=== PATIENT | male | born 1955 ===

== ENCOUNTER 2024-01-02 21:07 | Emergency (ER) | payer OTHER, MEDICARE ==
[2024-01-02] MEDS ORDERED: TYLENOL 325 MG ONE (21:37)
[2024-01-02] MEDS ORDERED: Sodium Chloride 0.9% 1000 ML 1,000 ML ONE (21:37)
[2024-01-02] MEDS: TYLENOL 325 MG PO STA (21:41)
--- NOTE | 2024-01-02 21:41 | ERPHSYRPT ---
- History of Present Illness Time Seen by Provider: 01/02/24 21:25 Source: patient Exam Limitations: no limitations Patient Subjective Stated Complaint: fever, cough, headache, confusion that started around 1730 Triage Nursing Assessment: pt wheeled to room by nursing staff and transferred to bed with assist of 2, pt alert but confused, alert and oriented x2-not oriented to time, pt skin hot to touch and flushed, pt c/o fever, cough, headache that started around 1730, pt has temp of 103, per ex pt refused tylenol at home. pt lives with son Physician History: 68-year-old male presents to emergency department for evaluation of fever cough. reports confusion. Patient reported headache earlier in the day. Currently no headache no neck pain no photophobia. Patient's symptoms are constant. Symptoms are moderate in intensity. No specific worsening improving factors. No trauma. No chest pain or shortness of breath. 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 Patient voices no other complaints or concerns at this time. Portions of this note were created with voice recognition technology. There may be grammatical, spelling, punctuation or sound alike errors Timing/Duration: today Fever Severity: moderate Fever Therapy POULTRY PICKER: other (Patient declined antipyretics) Associated Symptoms: cough Allergies/Adverse Reactions: lisinopril Adverse Reaction (Severe, Verified 01/02/24 21:11) Swelling of Tongue and Lips Hx Tetanus, Diphtheria Vaccination/Date Given: Yes Hx Influenza Vaccination/Date Given: No Hx Pneumococcal Vaccination/Date Given: No Immunizations Up to Date: Yes Travel Risk - International Travel Have you traveled outside of the country in past 3 weeks: No - Coronavirus Screening Are you exhibiting any of the following symptoms?: Yes Symptoms: Fever, Cough: New Onset, Headaches/Body Aches/Fatigue Close contact with a COVID-19 positive Pt in past 14-21 Days: No - Vaccine Status Have you recieved a Covid-19 vaccination: Yes Respiratory Supervisor: Unknown - Vaccination Dates Dates if Unknown: unk - Review of Systems Constitutional: No Symptoms, No Fever, No Chills Eyes: No Symptoms Ears, Nose, & Throat: No Symptoms Respiratory: No Symptoms, No Cough, No Dyspnea Cardiac: No Symptoms, No Chest Pain, No Edema, No Syncope Abdominal/Gastrointestinal: No Symptoms, No Abdominal Pain, No Nausea, No Vomiting, No Diarrhea Genitourinary Symptoms: No Symptoms, No Dysuria Musculoskeletal: No Symptoms, No Back Pain, No Neck Pain Skin: No Symptoms, No Rash Neurological: No Symptoms, No Dizziness, No Focal Weakness, No Sensory Changes Psychological: No Symptoms Endocrine: No Symptoms Hematologic/Lymphatic: No Symptoms Immunological/Allergic: No Symptoms All Other Systems: Reviewed and Negative - Past Medical History Pertinent Past Medical History: Yes Neurological History: No Pertinent History ENT History: Cataracts Cardiac History: Aneurysm, High Cholesterol, Hypertension, Myocardial Infarction ([place]) Respiratory History: Pneumonia Endocrine Medical History: Diabetes Type II Musculoskeletal History: Arthritis GI Medical History: No Pertinent History History: No Pertinent History Psycho-Social History: No Pertinent History Male Reproductive Disorders: No Pertinent History - Past Surgical History Past Surgical History: Yes Neuro Surgical History: No Pertinent History Cardiac: CABG, Cardiac Stent Respiratory: No Pertinent History Gastrointestinal: No Pertinent History Genitourinary: No Pertinent History Musculoskeletal: No Pertinent History Male Surgical History: No Pertinent History - Social History Smoking Status: Former smoker Exposure to second hand smoke: No Drug Use: none Patient Lives Alone: No (son) - Nursing Vital Signs Nursing Vital Signs: Initial Vital Signs Temperature 103.2 F 01/02/24 21:14 Pulse Rate 86 01/02/24 21:14 Respiratory Rate 92 H 01/02/24 21:14 Blood Pressure 133/51 01/02/24 21:14 O2 Sat by Pulse Oximetry 93 L 01/02/24 21:14 Pain Scale Pain Intensity 0 - Physical Exam General Appearance: no apparent distress, alert Eye Exam: PERRL/EOMI ENT Exam: normal ENT inspection, No pharyngeal erythema, No tonsillar exudate Neck Exam: supple, full range of motion, No meningismus Respiratory Exam: normal breath sounds, lungs clear, no respiratory distress Cardiovascular/Chest Exam: normal heart sounds, regular rate/rhythm, No murmur, No edema Gastrointestinal/Abdominal Exam: soft, non tender, no distention Extremity Exam: non-tender, normal range of motion, normal inspection, normal capillary refill Neurologic Exam: alert, oriented x 3, cooperative, church worker II-XII nml as tested, normal mood/affect, sensation nml, No motor deficits Skin Exam: normal color, warm, dry, No rash Lymphatic: No adenopathy SpO2 Interpretation: normal SpO2: 94 O2 Delivery: Room Air - Course Nursing assessment & vital signs reviewed: Yes - Radiology Exams Chest X-ray Interpretation: Interpreted by me (Some basilar atelectasis. No consolidations) - CT Exams Head CT Interpretation: Tele-radiologist Report (CT head reveals a left mastoiditis otherwise no acute intracranial pathology.) Ordered Tests: Active Orders 24 hr Category Date Time Status AMA [Release AMA] OM.NOW Care 01/03/24 00:21 Completed Bark Fitter STAT Care 01/02/24 21:24 Completed IV Insertion STAT Care 01/02/24 21:23 Completed Pulse Oximetry (ED) STAT Care 01/02/24 21:23 Completed CHEST 1 VIEW (PORTABLE) Stat Exams 01/02/24 21:24 Completed HEAD WITHOUT CONTRAST [CT] Stat Exams 01/02/24 21:36 Completed BLOOD CULTURE Stat Lab 01/02/24 21:45 Received CBC W DIFF Stat Lab 01/02/24 21:30 Completed CMP Stat Lab 01/02/24 21:30 Completed Lactic Acid Stat Lab 01/02/24 21:23 Completed Lactic Acid Stat Lab 01/02/24 23:43 Completed UA W/RFX UR CULTURE Stat Lab 01/02/24 21:32 Completed Medication Summary Discontinued Medications Generic Name Dose Route Start Last Admin Trade Name Freq PRN Reason Stop Dose Admin Acetaminophen 975 mg 01/02/24 21:23 01/02/24 21:41 Acetaminophen 325 Mg Tablet PO 01/02/24 21:24 975 mg STAT STA Administration Acetaminophen Confirm 01/02/24 21:37 Acetaminophen 325 Mg Tablet Administered 01/02/24 21:38 Dose 975 mg .ROUTE .STK-MED ONE Sodium Chloride 1,000 mls @ 100 mls/hr 01/02/24 21:30 01/02/24 21:42 Sodium Chloride 0.9% 1000 Ml IV 02/01/24 21:29 100 mls/hr .Q10H ROBYN Administration Clindamycin HCl/Dextrose 600 mg in 50 mls @ 100 mls/hr 01/03/24 00:11 01/03/24 00:19 Clindamycin-D5w 600 Mg/50 Ml IV 01/03/24 00:40 Not Given STAT STA Clindamycin HCl/Dextrose Confirm 01/03/24 00:17 Clindamycin-D5w 600 Mg/50 Ml Administered 01/03/24 00:18 Dose 600 mg in 50 mls @ ud IV .STK-MED ONE Piperacillin Sod/Tazobactam 100 mls @ 200 mls/hr 01/03/24 00:19 01/03/24 00:21 Sod 3.375 gm/ Sodium Chloride IV 01/03/24 00:48 200 mls/hr STAT ONE Administration Sodium Chloride Confirm 01/03/24 00:20 Sodium Chloride 100ml Mini-Bag Plus Administered 01/03/24 00:21 Dose 100 mls @ ud IV .STK-MED ONE Sodium Chloride Confirm 01/02/24 21:37 Sodium Chloride 0.9% 1000 Ml Administered 01/02/24 21:38 Dose 1,000 mls @ ud .ROUTE .STK-MED ONE Piperacillin Sod/Tazobactam Sod Confirm 01/03/24 00:20 Piperacillin/Tazobactam Sodium 3.375 Gm Vial Administered 01/03/24 00:21 Dose 3.375 gm IV .STK-MED ONE Lab/Rad Data: Laboratory Result Diagrams 01/02/24 21:30 01/02/24 21:30 Laboratory Results 01/02/24 01/02/24 01/02/24 Range/Units 23:43 21:50 21:32 WBC (4.0-10.5) x10^3/uL RBC (4.1-5.6) x10^6/uL Hgb (12.5-18.0) g/dL Hct (42-50) % MCV (78-100) fL MCH (26-32) pg MCHC (32-36) g/dL RDW (11.5-14.0) % Plt Count (150-450) x10^3/uL MPV (7.5-11.0) fL Gran % (36.0-66.0) % Immature Gran % (Auto) (0.00-0.4) % Nucleat RBC Rel Count (0.00-0.1) % Eos # (Auto) (0-0.5) x10^3/uL Immature Gran # (Auto) (0.00-0.03) x10^3u/L Absolute Lymphs (auto) (1.0-4.6) x10^3/uL Absolute Monos (auto) (0.0-1.3) x10^3/uL Absolute Nucleated RBC (0.00-0.01) x10^3u/L Lymphocytes % (24.0-44.0) % Monocytes % (0.0-12.0) % Eosinophils % (0.00-5.0) % Basophils % (0.0-0.4) % Absolute Granulocytes (1.4-6.9) x10^3/uL Basophils # (0-0.4) x10^3/uL Sodium (135-145) mmol/L Potassium (3.5-5.1) mmol/L Chloride (98-107) mmol/L Carbon Dioxide (22-30) mmol/L Anion Gap (5-15) MEQ/L BUN (9-20) mg/dL Creatinine (0.66-1.25) mg/dL Estimated GFR ML/MIN Glucose (74-106) mg/dL Lactic Acid 1.0 (0.4-2.0) Calcium (8.4-10.2) mg/dL Total Bilirubin (0.2-1.3) mg/dL AST (17-59) U/L ALT (0-50) U/L Alkaline Phosphatase (38-126) U/L Serum Total Protein (6.3-8.2) g/dL Albumin (3.5-5.0) g/dL Urine Color Yellow (Yellow) Urine Appearance Clear (Clear) Urine pH 6.0 (4.6-8.0) Ur Specific [place] 1.025 (1.005-1.030) Urine Protein Negative (Negative) Urine Glucose (UA) >=1000 A (Negative) mg/dL Urine Ketones Negative (Negative) Urine Blood Negative (Negative) Urine Nitrite Negative (Negative) Urine Bilirubin Negative (Negative) Urine Urobilinogen 1.0 A (0.2) mg/dL Ur Leukocyte Esterase Negative (Negative) U Hyaline Cast (Auto) NONE SEEN (0-2) /LPF Urine Microscopic RBC 0-2 (0-5) /HPF Urine Microscopic WBC 0-2 (0-5) /HPF Ur Epithelial Cells None Seen (None Seen) /HPF Urine Bacteria None Seen (None Seen) /HPF Urine Culture Reflexed NO (NO) Influenza Type A Ag NEGATIVE (NEGATIVE) Influenza Type B Ag NEGATIVE (NEGATIVE) RSV (PCR) NEGATIVE (NEGATIVE) SARS-CoV-2 (PCR) POSITIVE A (NEGATIVE) 01/02/24 01/02/24 01/02/24 Range/Units 21:30 21:30 21:23 WBC 6.8 (4.0-10.5) x10^3/uL RBC 5.14 (4.1-5.6) x10^6/uL Hgb 14.4 (12.5-18.0) g/dL Hct 43.1 (42-50) % MCV 83.9 (78-100) fL MCH 28.0 (26-32) pg MCHC 33.4 (32-36) g/dL RDW 14.1 H (11.5-14.0) % Plt Count 158 (150-450) x10^3/uL MPV 10.4 (7.5-11.0) fL Gran % 80.4 H (36.0-66.0) % Immature Gran % (Auto) 0.6 H (0.00-0.4) % Nucleat RBC Rel Count 0.0 (0.00-0.1) % Eos # (Auto) 0.08 (0-0.5) x10^3/uL Immature Gran # (Auto) 0.04 H (0.00-0.03) x10^3u/L Absolute Lymphs (auto) 0.55 L (1.0-4.6) x10^3/uL Absolute Monos (auto) 0.63 (0.0-1.3) x10^3/uL Absolute Nucleated RBC 0.00 (0.00-0.01) x10^3u/L Lymphocytes % 8.1 L (24.0-44.0) % Monocytes % 9.3 (0.0-12.0) % Eosinophils % 1.2 (0.00-5.0) % Basophils % 0.4 (0.0-0.4) % Absolute Granulocytes 5.46 (1.4-6.9) x10^3/uL Basophils # 0.03 (0-0.4) x10^3/uL Sodium 138 (135-145) mmol/L Potassium 3.9 (3.5-5.1) mmol/L Chloride 103 (98-107) mmol/L Carbon Dioxide 23 (22-30) mmol/L Anion Gap 15.6 H (5-15) MEQ/L BUN 19 (9-20) mg/dL Creatinine 1.32 H (0.66-1.25) mg/dL Estimated GFR 58.8 ML/MIN Glucose 120 H (74-106) mg/dL Lactic Acid 2.0 (0.4-2.0) Calcium 9.2 (8.4-10.2) mg/dL Total Bilirubin 0.60 (0.2-1.3) mg/dL AST 46 (17-59) U/L ALT 32 (0-50) U/L Alkaline Phosphatase 57 (38-126) U/L Serum Total Protein 7.5 (6.3-8.2) g/dL Albumin 4.5 (3.5-5.0) g/dL Urine Color (Yellow) Urine Appearance (Clear) Urine pH (4.6-8.0) Ur Specific [place] (1.005-1.030) Urine Protein (Negative) Urine Glucose (UA) (Negative) mg/dL Urine Ketones (Negative) Urine Blood (Negative) Urine Nitrite (Negative) Urine Bilirubin (Negative) Urine Urobilinogen (0.2) mg/dL Ur Leukocyte Esterase (Negative) U Hyaline Cast (Auto) (0-2) /LPF Urine Microscopic RBC (0-5) /HPF Urine Microscopic WBC (0-5) /HPF Ur Epithelial Cells (None Seen) /HPF Urine Bacteria (None Seen) /HPF Urine Culture Reflexed (NO) Influenza Type A Ag (NEGATIVE) Influenza Type B Ag (NEGATIVE) RSV (PCR) (NEGATIVE) SARS-CoV-2 (PCR) (NEGATIVE) - Progress Progress: improved Progress Note: 68-year-old male presents to our ED for evaluation of fever confusion headache. Physical exam otherwise nonremarkable. Patient had no nuchal rigidity. No photosensitivity. No meningeal signs. CT head reveals left mastoiditis. Workup also reveals dehydration elevated creatinine. Elevated lactic acid. Dehydration. In light of patient's presenting symptoms I advised a lumbar puncture to assess for encephalitis meningitis. Patient declined. Patient at bedside states patient was no longer confused and he was reliable. Then I advised admission for treatment of dehydration antibiotics for the mastoiditis and observation given the patient refused the lumbar puncture. Patient declined admission as well. We then administered a dose of Zosyn in our ED. A prescription for Augmentin forwarded to patient's pharmacy. states she will make sure patient is monitored at home and they will return if symptoms continue or worsen. They agree to follow-up with a primary care doctor within 48 hours for evaluation. Patient is of sound mind. Patient is appropriate to make informed and independent medical decisions. Patient understands that leaving AGAINST MEDICAL ADVICE can result in delayed diagnosis, increased risk of morbidity, mortality, short and long-term disability including . In spite of these risks, patient has decided to leave AGAINST MEDICAL ADVICE. Patient understands that he may return to our ED at any point if he reconsiders. Patient agrees to follow-up with his primary care doctor within 48 hours for reevaluation. Patient voices no other complaints or concerns at this time. We will release patient AGAINST MEDICAL ADVICE per their request. Portions of this note were created with voice recognition technology. There may be grammatical, spelling, punctuation or sound alike errors Complexity problem addressed is moderate acute complicated No critical care time Complexity of data reviewed and analyzed is moderate. Test ordered test reviewed. Results analyzed and correlated clinically with history and physical examination. Risk of complication and or risk of morbidity/mortality of patient management is moderate. Prescription for Augmentin forwarded to patient's pharmacy. Vital stable. Temperature significantly improved. Plan of care established for shared decision making. No social determinants of health present impede follow-up. Ex- at bedside states she will continue to monitor patient at home 01/03/24 00:21 01/03/24 00:26 Patient's chest x-ray report shows mild cardiomegaly with pulmonary congestion. This is an unexpected finding. Report resulted after patient left AMA. RN advised to contact patient's primary provider Anamaria Kelly for follow-up. We will also contact patient to inform him of the finding and the importance of follow-up with his primary care physician. 01/03/24 06:27 Counseled pt/family regarding: lab results, diagnosis, need for follow-up, rad results - Departure Departure Disposition: AMA Clinical Impression: Fever, Confusion, Elevated lactic acid level, COVID, Dehydration, Glucosuria, Mastoiditis of left side, Pulmonary congestion, Cardiomegaly Condition: Stable Critical Care Time: No Referrals: ARISTEO GARCÍA [NON-STAFF PHY W/O PRIVILEGES] - Follow up/PCP as directed Instructions: Mastoiditis (DC), COVID-19 (DC) Additional Instructions: Discharge/Care Plan ALANNA ADAM was seen on 01/02/24 in the Emergency Room. The patient was counseled regarding Diagnosis,Lab results, Imaging studies, need for follow up and when to return to the Emergency Room. Prescriptions given: Discharge Note I have spoken with the patient and/or caregivers. I have explained the patient's condition, diagnosis and treatment plan based on the information available to me at this time. I have answered the patient's and/or caregiver's questions and addressed any concerns. The patient and/or caregivers have as good understanding of the patient's diagnosis, condition and treatment plan as can be expected at this point. The vital signs have been stable. The patient's condition is stable and appropriate for discharge from the emergency department. The patient will pursue further outpatient evaluation with the primary care physician or other designated or consulting physician as outlined in the discharge instructions. The patient and/or caregivers are agreeable to this plan of care and follow-up instructions have been explained in detail. The patient and/or caregivers have received these instruction. The patient/and or caregivers are aware that any significant change in condition or worsening of symptoms should prompt an immediate return to this or the closest emergency department or call 911. Prescriptions: Amox Tr/Potass Clav. 875 mg [Augmentin 875-125 Tablet] 875 mg PO BID 7 Days #14 tablet
[2024-01-02] MEDS: Sodium Chloride 0.9% 1000 ML 1,000 ML IV SCH (21:42)
[2024-01-02 21:53] LABS: Absolute Neutrophil Ct (ANC) 5.46 x10^3/uL (1.4-6.9); BASOPHIL % 0.4 % (0.0-0.4); Basophil (Absolute #) 0.03 x10^3/uL (0-0.4); Eosinophil % 1.2 % (0.00-5.0); Eosinophil (Absolute #) 0.08 x10^3/uL (0-0.5); Hematocrit 43.1 % (42-50); Hemoglobin 14.4 g/dL (12.5-18.0); IMMATURE GRAN # 0.04 x10^3u/L (0.00-0.03); IMMATURE GRAN % 0.6 % (0.00-0.4); Lymphocyte (Absolute #) 0.55 x10^3/uL (1.0-4.6); Lymphocytes % 8.1 % (24.0-44.0); Mean Cell Volume 83.9 fL (78-100); Mean Corpuscular Hgb Concent. 33.4 g/dL (32-36); Mean Platelet Volume 10.4 fL (7.5-11.0); Monocyte (Absolute #) 0.63 x10^3/uL (0.0-1.3); Monocytes % 9.3 % (0.0-12.0); Neutrophil % 80.4 % (36.0-66.0); Platelet Count 158 x10^3/uL (150-450); Red Blood Count 5.14 x10^6/uL (4.1-5.6); Red Cell Distribution Width 14.1 % (11.5-14.0); White Blood Count 6.8 x10^3/uL (4.0-10.5)
[2024-01-02 21:58] LABS: Appearance Clear (Clear); Bacteria None Seen /HPF (None Seen); Bilirubin Negative (Negative); Blood Negative (Negative); Epithelial Cells None Seen /HPF (None Seen); Glucose, Urine >=1000 mg/dL (Negative); Hyaline Casts NONE SEEN /LPF (0-2); Ketones Negative (Negative); Leukocyte Esterase Negative (Negative); Nitrite Negative (Negative); Protein,Urine Dip Negative (Negative); RBC 0-2 /HPF (0-5); Specific Gravity 1.025 (1.005-1.030); WBC 0-2 /HPF (0-5)
[2024-01-02 22:00] LABS: ADD URINE CULTURE? NO (NO)
[2024-01-02 22:05] LABS: ALBUMIN 4.5 g/dL (3.5-5.0); ANION GAP 15.6 MEQ/L (5-15); BILIRUBIN,TOTAL 0.6 mg/dL (0.2-1.3); Calcium 9.2 mg/dL (8.4-10.2); Creatinine 1 1.32 mg/dL (0.66-1.25); EST GLOMERULAR FILTRATION RATE 58.8 ML/MIN; Potassium 3.9 mmol/L (3.5-5.1); Total Protein 7.5 g/dL (6.3-8.2)
[2024-01-02 22:29] LABS: INFLUENZA A NEGATIVE (NEGATIVE); INFLUENZA B NEGATIVE (NEGATIVE); RESPIRATORY SYNCTIAL VIRUS NEGATIVE (NEGATIVE)
[2024-01-02 22:34] LABS: SARS-CoV-2 Xpert Express POSITIVE (NEGATIVE)
--- NOTE | 2024-01-02 23:06 | XRAY ---
CLINICAL HISTORY: confusion TECHNIQUE: CT Head without contrast was performed. COMPARISON: None. FINDINGS: Mild age-appropriate global involutional changes are identified as evident by prominent sulci and extra-axial CSF spaces with mild ex-vacuo dilatation of the ventricles. The visualized brain parenchyma shows normal appearance. Mild intracranial atherosclerosis identified. Symmetric foci of basal ganglia calcifications are identified bilaterally. No focal parenchymal abnormalities are demonstrated. Lyons-white matter differentiation is maintained. No midline shifts or deformity. No intracerebral or extra axial hematoma. Normal size and configuration of the cerebral ventricles. Normal CT appearance of the posterior fossa structures namely the cerebellar hemispheres, brainstem and cerebellar peduncles. The IACs are unremarkable. The cerebello-pontine angles are clear. The pituitary gland, the pineal gland, the optic chiasm is unremarkable. The osseous structures in the skull base are unremarkable. No definite calvarium fractures. Scanned paranasal sinuses are clear. Mild fluid is identified within the left mastoid air cells. Nasal septum is deviated towards the right side with an associated bony spur. IMPRESSION: 1. Mild age-appropriate global involutional changes. 2. No evidence of intracranial hemorrhage, gross established territorial infarction or mass effect. 3. Mild intracranial atherosclerosis. 4. Mild left mastoiditis. 5. Right-sided deviated nasal septum with an associated bony spur. Electronically Signed by: Cathryn Mcfarland MD. (01/02/2024 23:01:26 EST)
[2024-01-02 23:09] VITALS: TEMP 101.7
[2024-01-03 00:11] VITALS: O2SAT 94
[2024-01-03] MEDS ORDERED: CLINDAMYCIN-D5W 600 MG/50 ML*** 0 MG/0 ML BAG IV ONE (00:17)
[2024-01-03] MEDS: CLINDAMYCIN-D5W 600 MG/50 ML*** 600 MG/50 ML BAG IV STA (00:19)
[2024-01-03] MEDS ORDERED: PIPERACILLIN/TAZOBACTAM IV ONE (00:20)
[2024-01-03] MEDS ORDERED: Sodium Chloride 100ML MINI-BAG PLUS 100 ML IV ONE (00:20)
[2024-01-03] MEDS: PIPERACILLIN/TAZOBACTAM 3.375 GM in Sodium Chloride 100ML MINI-BAG PLUS 100 ML IV ONE (00:21)
[2024-01-03 01:10] VITALS: BP 129/73; PULSE 80; RESP 19
--- NOTE | 2024-01-03 01:36 | XRAY ---
CLINICAL HISTORY: fever TECHNIQUE: X-ray of the chest, AP view. COMPARISON: None. FINDINGS: Post sternotomy wires seen. Rotation towards right side. Prominent hilar and perihilar vascular markings Mild cardiomegaly Normal configuration of the mediastinum. The tanisha are normal in size and position. The costophrenic and cardiophrenic angles are clear. IMPRESSION: 1. Mild cardiomegaly. 2. Prominent hilar and perihilar vascular markings, suggestive of pulmonary congestion. Advised echocardiography if clinically required. Electronically Signed by: Cathryn Mcfarland MD. (01/03/2024 01:31:21 EST)
== END 2024-01-03 01:03 | disposition left against medical advice (07) ==
LOC: ED 21:07
DX: U07.1 COVID-19 (principal); R50.9 Fever, unspecified; R41.0 Disorientation, unspecified; R79.89 Other specified abnormal findings of blood chemistry; E86.0 Dehydration; R81 Glycosuria; H70.92 Unspecified mastoiditis, left ear; R09.89 Other specified symptoms and signs involving the circulatory and respiratory systems; I11.9 Hypertensive heart disease without heart failure; R05.9 Cough, unspecified; E78.5 Hyperlipidemia, unspecified; E11.9 Type 2 diabetes mellitus without complications
CPT/HCPCS: 0241U; 36000; 36415; 70450; 71045; 80053; 81001; 83605; 85025; 87040; 93041; 94760; 99284; A9270-GY